=== PATIENT | female | born 1975 | race Two or more races ===

== ENCOUNTER 2019-10-08 05:16 | Emergency (ER) | payer MEDICAID ==
[~2019-10-08] VITALS: Ht 154.9 cm; Wt 104.3 kg
[2019-10-08 05:27] VITALS: BP 124/90
--- NOTE | 2019-10-08 05:28 | NUR ---
ED Nurse Note: Patient was brought in by alannah TINAJERO [id number] from home c/o nausea and dizziness since 0500. Pt stated she was at rest and woke up with s/s. Pt is currently on menstural cycle. Patient p[resented calm, AAO x4, VSS at this time, skin is warm to touch.
[2019-10-08] MEDS ORDERED: LORazepam 1mg tab ORAL ONE (05:30)
[2019-10-08] MEDS ORDERED: MECLIZINE HCL25 MG ORAL (05:33)
--- NOTE | 2019-10-08 05:33 | Emergency Room Report ---
History of Present Illness General Chief Complaint: Nausea Source: Patient Present Illness HPI This is a 43-year-old female with no past medical history. She presents with chief complaint of dizziness. Onset started couple days ago. She felt like the room is spinning. Never had this problem before. [place] nauseous. She was sleeping when she had that sensation that woke her up. She was concerned thinking that she may have had a stroke. She got anxious and called 911. She said that she has lightheadedness, numbness to her lips. Also felt dry mouth. No focal deficit. Nausea but no vomiting. No diarrhea. She had a physical on with extensive lab work ultrasound and chest x-ray. Her chest x-ray showed some mild interstitial markings consistent with bronchitis. She has been coughing for last couple days. Ultrasound showed a fibroid uterus. She says she has very heavy menstruation. Her hemoglobin was 10. Her LFTs were unremarkable. White count was normal. Her pelvic ultrasound showed small ovarian cyst on the left. Cholesterol levels are unremarkable. Her ammonia level also unremarkable. Iron level was low. She was started on iron. Allergies: Coded Allergies: No Known Allergies (Unverified , 10/08/19) Patient History Past Medical History: see triage record, old chart reviewed Past Surgical History: none Pertinent Family History: none Social History: Denies: smoking Last Menstrual Period: current Now: No Immunizations: other Reviewed Nursing Documentation: PMH: Agreed; PSxH: Agreed Review of Systems Eye: Denies: eye pain, blurred vision ENT: Denies: ear pain, nose congestion, throat swelling Respiratory: Denies: cough, shortness of breath Cardiovascular: Denies: chest pain, palpitations Gastrointestinal: Denies: abdominal pain, diarrhea, nausea, vomiting Musculoskeletal: Denies: back pain, joint pain Skin: Denies: rash Neurological: Reports: dizziness; Denies: headache, numbness Endocrine: Denies: increased thirst, increased urine Hematologic/Lymphatic: Denies: easy bruising All Other Systems: negative except mentioned in HPI Physical Exam Vital Signs Date Time Temp Pulse Resp B/P (MAP) Pulse Ox O2 Delivery O2 Flow Rate FiO2 10/08/19 05:17 97.3 74 16 124/90 (101) 99 Room Air Vitals normal Sp02 EP Interpretation: reviewed, normal General Appearance: well appearing, no apparent distress, alert Head: normocephalic, atraumatic Eyes: bilateral eye PERRL, bilateral eye EOMI ENT: hearing grossly normal, normal pharynx Neck: full range of motion, supple, no meningismus Respiratory: chest non-tender, lungs clear, normal breath sounds Cardiovascular #1: regular rate, rhythm, no murmur Gastrointestinal: normal bowel sounds, non tender, no mass, no organomegaly, no bruit, non-distended Musculoskeletal: back normal, normal range of motion, gait/station normal Psychiatric: anxious Medical Decision Making Diagnostic Impression: Primary Impression: Vertigo ER Course Patient with symptom consistent with benign positional vertigo. Induce a panic attack in her. I see no need for blood work since she is had them done were normal. No evidence of TIA or CVA. No evidence of central vertigo. CT scan unremarkable. Will discharge home. CT/MRI/US Diagnostic Results CT/MRI/US Diagnostic Results : Imaging Test Ordered: CT head Impression Negative per radiologist Last Vital Signs Date Time Temp Pulse Resp B/P (MAP) Pulse Ox O2 Delivery O2 Flow Rate FiO2 10/08/19 05:27 97.3 16 124/90 99 Room Air 10/08/19 05:17 74 Status: improved Disposition: HOME, SELF-CARE Condition: Stable Scripts Ondansetron (Zofran) 4 Mg Tablet 4 MG ORAL Q8H PRN for Nausea & Vomiting, #10 TAB 0 Refills Prov: Denilson Carlos MD 10/08/19 Meclizine Hcl* (MECLIZINE*) 25 Mg Tablet 50 MG ORAL THREE TIMES A DAY, #30 TAB Prov: Denilson Calros MD 10/08/19 Additional Instructions: Follow-up with your doctor in 7 days. Return if symptoms worsen. Denilson Carlos MD Oct 08, 2019 05:33
--- NOTE | 2019-10-08 06:03 | Diagnostic Imaging Report ---
Indication: Headache Technique: Contiguous 5 mm thick transaxial imaging of the head obtained in a Siem[employer] Sensation [address] scanner. Soft tissue and bone windows generated. Automatic Exposure Control was utilized. Total Dose length Product (DLP): [address] Dose Index Volume (CTDIvol): 62.7 mGy Comparison: none Findings: The size and configuration of the cortical sulci, basal cisterns, and ventricles are within normal limits for age. There is no mass effect, midline shift, or edema identified. There is no evidence of acute hemorrhage or abnormal intra-axial or extra-axial fluid collections. The bones and soft tissues are unremarkable. Impression: No mass effect, edema or acute bleed. [facility] has communicated the preliminary results to the Emergency Department. Their findings are largely concordant with this report. The CT scanner at [facility] is accredited by the [employer] and the scans are performed using dose optimization techniques as appropriate to a performed exam including Automatic Exposure control.
[2019-10-08] MEDS ORDERED: ZOFRAN4 MG ORAL (06:08)
[2019-10-08 07:01] VITALS: BP 118/68
--- NOTE | 2019-10-08 07:02 | NUR ---
ED Nurse Note: Pt cleared by health care Provider for discharge. DC instructions/prescription was given and explained to pt and verbalized understanding of teachings. All medical deviecs such as ID band removed. Pt is AAO x4, ambulatory and left with all personal belongings.
== END 2019-10-08 07:02 | disposition home or self-care (01) ==
LOC: EDBD 05:16 → EMR 05:38
DX: R42 Dizziness and giddiness (principal)
CPT/HCPCS: 70450; Z7502; 99284